=== PATIENT | female | born 1980 | race Caucasian/White ===

== ENCOUNTER 2023-11-30 11:00 | Outpatient (AMB) | payer BC, SELFPAY ==
--- NOTE | 2023-11-30 11:12 | MHC.OFFVIS ---
Intake Vital Signs 11/30/23 11:13 Height 5 ft 10 in Weight 296 lb BMI 42.5 BP 110/68 Blood Pressure Location Lt brachial Position Sitting Pulse 96 Pulse Source Pulse Oximeter Pulse Oximetry (%) 97 Oxygen Delivery Method Room Air Intake Visit Reasons: Shortness of breath Procedure Writer Required: No Type Copy Examiner: Type Copy Examiner offered & declined Accompanied by: Self / Same As Patient Allergies escitalopram Adverse Reaction (Intermediate, Verified 11/30/23 11:33) Fatigued sertraline Adverse Reaction (Intermediate, Verified 11/30/23 11:33) Chest Pain acetaminophen [From Vicodin] Adverse Reaction (Unknown, Verified 11/30/23 11:33) Nausea and Vomiting hydrocodone [From Vicodin] Adverse Reaction (Unknown, Verified 11/30/23 11:33) Nausea and Vomiting olanzapine [From Zyprexa] Adverse Reaction (Unknown, Verified 11/30/23 11:33) Dizziness Bee Stings Allergy (Severe, Uncoded 11/30/23 11:33) Anaphylaxis Medication List - Last Reconciled 11/30/23 by Criss Espino LPN albuterol sulfate 90 mcg/actuation (Ventolin HFA) 2 puffs inhalation Q4-6H PRN cyclobenzaprine 5 mg PO TID PRN duloxetine 60 mg PO DAILY epinephrine 0.3 mg IM Q4H PRN fluticasone propion-salmeterol 250-50 mcg/dose (Advair Diskus) 1 inh inhalation BID gabapentin 100 mg PO BID ondansetron 4 mg PO Q8H PRN triamcinolone acetonide 1 spray intranasal DAILY HPI Shortness of breath HPI Details Liliana is a pleasant 43 year old female, former smoker with 12 pack year history, quit 5 years ago, with underlying asthma. She reports worsening control of asthma after moving into an older home two years ago as well as kate COVID. She reports having COVID on three different occasions, last one month ago. She was admitted to [facility] in October for acute respiratory failure with hypoxia secondary to COVID. She denies intubation. She was discharged on room air. She also reports receiving three rounds of steroids since mid September. She continues to have dyspnea, productive cough with white sputum, wheezing and chest tightness. Previously she was on Advair 500 but had discontinued as her asthma was controlled. She was recently restarted on Advair 250 with suboptimal control, using her albuterol multiple times per day. She reports significant environmental allergies and is under the care of Dr. Packer. She has undergone multiple allergy tests, reports not available today. She is not taking any antihistamines as she is hesistent to take any medication. She also has two cats at home. She denies any occupational exposures. She reports son with asthma and father, smoker, with COPD. [facility] Social History (Updated 11/30/23 @ 11:24 by Criss Espino LPN) Patient Tobacco Use Status: Former Tobacco user Tobacco use type: Cigarette Cigarette Packs Per Day: 0.5 Years Smoked: 25 Review of Systems Const Denies chills, Denies excessive sweating, Denies fever(s), Denies headache(s) and Denies night sweats Eyes Denies dry eyes, Denies irritation and Denies itchy eyes ENT Reports Normal hearing present, Denies headache(s), Denies nasal congestion, Denies nasal discharge and Denies sore throat Card Denies chest pain, Denies chest pain at rest, Denies chest pain with activity, Denies claudication, Denies leg edema, Denies dyspnea, Denies orthopnea and Denies paroxysmal nocturnal dyspnea Resp Denies chest congestion, Denies pain on inspiration, Denies pain with cough, Denies dyspnea and Denies stridor Musc Denies myalgias Neuro Reports Normal hearing present and Denies headache(s) Endo Denies excessive sweating Bridger/Lymph Denies lymphadenopathy Aller/Immun Denies itchy eyes and Denies seasonal rhinorrhea Physical Exam Vital Signs: Last Vital Signs Pulse 96 11/30/23 11:13 BP 110/68 11/30/23 11:13 Pulse Ox 97 11/30/23 11:13 Oxygen Delivery Method Room Air 11/30/23 11:13 BMI result Body Mass Index 42.5 Const General: cooperative, healthy appearing, comfortable, no acute distress, well developed and alert Nutritional Appearance: obese Orientation/consciousness: patient oriented x3 Limitations: no limitations HEENT Head: Yes normal to inspection, Yes normocephalic and Yes atraumatic Ears: hearing grossly normal bilaterally and external ears normal Eyes General: appearance normal, both eyes and all related structures Eyelids: Yes eyelids normal Sclerae: sclerae normal EOM: EOMs intact bilaterally Neck Neck: Yes normal visual inspection and Yes no lymphadenopathy Lymphatic: no lymphadenopathy noted Chest Chest palpation & inspection: normal inspection of the chest Resp Effort & Inspection: normal respiratory effort, able to speak in complete sentences, no audible wheezes, no cough, no stridor, not tachypneic, no tripod positioning and no use of accessory muscles Auscultation: clear to auscultation bilaterally Cardio Jugular venous distension: no JVD Rate: regular rate Rhythm: regular rhythm Skin Other: warm, dry General skin exam: no rashes or lesions noted Neuro General: patient oriented x3 Cranial nerves: Yes Normal hearing present Cognition (Neuro): normal cognition Gait exam (Neuro): Normal gait present Extrem General: Yes normal to inspection, Yes capillary refill normal, Yes no clubbing, cyanosis or edema and Yes no pedal edema Psych Appearance: grossly normal and well kempt Speech and movement: Normal speech and movement present and Clear speech present Affect: normal affect Attitude: cooperative Thought process: Normal thought process present Thought content: Normal thought content present Insight: Good insight present (Psych) Judgement: Good judgement present (Psych) Assessment & Plan Assessment & Plan (1) Asthma: Code(s): J45.909 - Unspecified asthma, uncomplicated (2) Environmental allergies: Code(s): Z91.09 - Other allergy status, other than to drugs and biological substances (3) Former smoker: Code(s): Z87.891 - Personal history of nicotine dependence Plan Liliana's symptoms are likely related to underlying asthma with an allergic component. Will send for PFT to assess. Will also send in Wixela 500, as Advair is being discontinued. Patient reported post nasal drip contributing to cough, will trial ipratropium. Will request allergy records as well as recent CXR and chest CT from admission at [facility]. All questions were answered and patient is in agreement of plan. Will follow up to review response to Wixela and results. Orders: Orders PFT pulmonary function test Today J45.909 - Unspecified asthma, uncomplicated Medications: New ipratropium bromide administer into each nostril 2 sprays intranasal BID 30 mL 3RF fluticasone propion-salmeterol 500-50 mcg/dose (Wixela Inhub) 1 inh inhalation Q12H 60 ea 3RF Coding Level of Care Code New Pt Level 4 (61543) Diagnoses Asthma J45.909 Environmental allergies Z91.09 Former smoker Z87.897
[2023-11-30 11:13] VITALS: BP 110/68; PULSE 96; O2SAT 97; BMI 42.5
== END 2023-11-30 12:01 | disposition home or self-care (01) ==
PROVIDERS: PCP Internal Medicine; Visit Provider Nurse Practitioner Family
DX: J45.909 Unspecified asthma, uncomplicated (principal); Z91.09 Other allergy status, other than to drugs and biological substances; Z87.891 Personal history of nicotine dependence
CPT/HCPCS: 99204

== ENCOUNTER → 2023-11-30 11:00 | Outpatient (BNVA) | payer BC, SELFPAY | PROVIDERS: PCP Internal Medicine; Visit Provider Nurse Practitioner Family ==

== ENCOUNTER 2023-12-02 15:25 | Outpatient (REF) | payer BC, SELFPAY | END 2023-12-02 15:26 | disposition home or self-care (01) | LOC: CF 15:25 | PROVIDERS: Visit Provider Nurse Practitioner Family | DX: Z13.89 Encounter for screening for other disorder (principal) ==

== ENCOUNTER 2024-01-04 08:54 | Outpatient (AMB) | payer BC, SELFPAY ==
[2024-01-04 08:58] VITALS: BP 128/72; PULSE 93; O2SAT 97; BMI 42.0
--- NOTE | 2024-01-04 08:58 | MHC.OFFVIS ---
Intake Vital Signs 01/04/24 08:58 Height 5 ft 10 in Weight 293 lb BMI 42.0 BP 128/72 Blood Pressure Location Rt brachial Position Sitting Pulse 93 Pulse Source Pulse Oximeter Pulse Oximetry (%) 97 Oxygen Delivery Method Room Air Intake Visit Reasons: sick visit Recording Studio Setup Worker Required: No Elementary Secretary: Elementary Secretary offered & declined Accompanied by: Self / Same As Patient Allergies escitalopram Adverse Reaction (Intermediate, Verified 01/04/24 09:02) Fatigued sertraline Adverse Reaction (Intermediate, Verified 01/04/24 09:02) Chest Pain acetaminophen [From Vicodin] Adverse Reaction (Unknown, Verified 01/04/24 09:02) Nausea and Vomiting hydrocodone [From Vicodin] Adverse Reaction (Unknown, Verified 01/04/24 09:02) Nausea and Vomiting olanzapine [From Zyprexa] Adverse Reaction (Unknown, Verified 01/04/24 09:02) Dizziness Bee Stings Allergy (Severe, Uncoded 01/04/24 09:02) Anaphylaxis Medication List - Last Reconciled 01/04/24 by Criss Espino LPN albuterol sulfate 90 mcg/actuation (Ventolin HFA) 2 puffs inhalation Q4-6H PRN cyclobenzaprine 5 mg PO TID PRN duloxetine 60 mg PO DAILY epinephrine 0.3 mg IM Q4H PRN fluticasone propion-salmeterol 500-50 mcg/dose (Wixela Inhub) 1 inh inhalation Q12H gabapentin 100 mg PO BID ipratropium bromide 2 sprays intranasal BID ondansetron 4 mg PO Q8H PRN HPI sick visit HPI Details Liliana is a pleasant 43 year old female, former smoker with 12 pack year history, quit 5 years ago, with underlying asthma. She reports worsening control of asthma post COVID. She reports having COVID on three different occasions. She was admitted to [place] in October for acute respiratory failure with hypoxia secondary to COVID. She denies intubation. At the last visit, she was started on Wixela 500 mcg as well as trial of ipratropium. She reports significant improvement in post nasal drip with ipratropium however continues with dyspnea and wheezing. She also reports an increase productive cough with tenacious yellow sputum. She reports she has had waxing and waning symptoms for a year which respond initially to antibiotics and then symptoms return. She has been on azithromycin as well as augmentin in the past. She denies prior sputum culture. [facility] Social History (Updated 01/04/24 @ 09:04 by Criss Espino LPN) Patient Tobacco Use Status: Former Tobacco user Tobacco use type: Cigarette Cigarette Packs Per Day: 0.5 Years Smoked: 25 Smoked in Last 30 Days: No Review of Systems Const Denies chills, Denies excessive sweating, Denies fever(s), Denies headache(s) and Denies night sweats Eyes Denies dry eyes, Denies irritation and Denies itchy eyes ENT Reports Normal hearing present, Denies headache(s), Denies nasal congestion, Denies nasal discharge, Denies post nasal drip and Denies sore throat Card Denies chest pain, Denies chest pain at rest, Denies chest pain with activity, Denies claudication, Denies leg edema, Reports dyspnea, Reports dyspnea on exertion, Denies orthopnea and Denies paroxysmal nocturnal dyspnea Resp Reports change in phlegm color, Denies chest congestion, Reports cough, Reports excessive phlegm production, Denies pain on inspiration, Denies pain with cough, Reports dyspnea, Reports dyspnea on exertion, Denies stridor and Reports wheezing Musc Denies myalgias Neuro Reports Normal hearing present and Denies headache(s) Endo Denies excessive sweating Bridger/Lymph Denies lymphadenopathy Aller/Immun Denies itchy eyes, Denies seasonal rhinorrhea and Reports wheezing Physical Exam Vital Signs: Last Vital Signs Pulse 93 01/04/24 08:58 BP 128/72 01/04/24 08:58 Pulse Ox 97 01/04/24 08:58 Oxygen Delivery Method Room Air 01/04/24 08:58 BMI result Body Mass Index 42.0 Const General: cooperative, healthy appearing, comfortable, no acute distress, well developed and alert Nutritional Appearance: obese Orientation/consciousness: patient oriented x3 Limitations: no limitations HEENT Head: Yes normal to inspection, Yes normocephalic and Yes atraumatic Ears: hearing grossly normal bilaterally and external ears normal Eyes General: appearance normal, both eyes and all related structures Eyelids: Yes eyelids normal Sclerae: sclerae normal EOM: EOMs intact bilaterally Neck Neck: Yes normal visual inspection and Yes no lymphadenopathy Lymphatic: no lymphadenopathy noted Chest Chest palpation & inspection: normal inspection of the chest Resp Other: faint expiratory wheezing on exam, resolved after duoneb Effort & Inspection: normal respiratory effort, able to speak in complete sentences, no audible wheezes, Actively coughing, no stridor, not tachypneic, no tripod positioning and no use of accessory muscles Auscultation: clear to auscultation bilaterally Cardio Jugular venous distension: no JVD Rate: regular rate Rhythm: regular rhythm Skin Other: warm, dry General skin exam: no rashes or lesions noted Neuro General: patient oriented x3 Cranial nerves: Yes Normal hearing present Cognition (Neuro): normal cognition Gait exam (Neuro): Normal gait present Extrem General: Yes normal to inspection, Yes capillary refill normal, Yes no clubbing, cyanosis or edema and Yes no pedal edema Psych Appearance: grossly normal and well kempt Speech and movement: Normal speech and movement present and Clear speech present Affect: normal affect Attitude: cooperative Thought process: Normal thought process present Thought content: Normal thought content present Insight: Good insight present (Psych) Judgement: Good judgement present (Psych) Office Procedures Nebulizer Treatment Nebulizer Treatment [id number]/[id number] RX initial, or Nebulizer Subsequent Treatment Office Meds ipratropium 0.5 mg-albuterol 3 mg (2.5 mg base)/3 mL nebulization soln Performing Provider: Kelly Choi NP Performing Location: [facility] Administered by: Criss Espino LPN on 01/04/24 09:28 Dose Route Admin Location Dispensed Lot Number Expiration Date ND Top And Seat Cover Fitter 3 mL inhalation 3 mL [id number] 08/23/25 98605-076-06 [employer] Assessment & Plan Assessment & Plan (1) Cough: Code(s): R05.9 - Cough, unspecified (2) Asthma: Code(s): J45.909 - Unspecified asthma, uncomplicated (3) Environmental allergies: Code(s): Z91.09 - Other allergy status, other than to drugs and biological substances (4) Former smoker: Code(s): Z87.891 - Personal history of nicotine dependence Plan Patient reports productive cough with tenacious yellow sputum for the last 2-3 weeks and multiple antibiotics over the last few months. Attempted sputum culture in office, but unable to expectorate. Given sputum cup and will attempt at home. Will follow up with results via telephone. After duoneb, lungs sounded clear, no need for prednisone at this time. Encouraged patient to use nebulizer QD for the next few days. Advised to continue using Wixela and will consider adding spiriva. All questions were answered and patient is in agreement of plan. Will follow up to review PFT results or sooner if needed. Orders: Orders Sputum Cult + Gram stain Today R05.9 - Cough, unspecified AMB Nebulizer Treatment Today J45.909 - Unspecified asthma, uncomplicated Coding Level of Care Code Est Pt Level 4 (36430) Diagnoses Cough R05.9 Asthma J45.909 Environmental allergies Z91.09 Former smoker Z87.891 CPT Codes Nebulizer Treatment - Nebulizer Treatment, initial or subsequent: [id number]/MDI RX initial, or Nebulizer Subsequent Treatment ([id number])
== END 2024-01-04 09:58 | disposition home or self-care (01) ==
PROVIDERS: PCP Internal Medicine; Visit Provider Nurse Practitioner Family
DX: R05.9 Cough, unspecified (principal); J45.909 Unspecified asthma, uncomplicated; Z91.09 Other allergy status, other than to drugs and biological substances; Z87.891 Personal history of nicotine dependence
CPT/HCPCS: 99214

== ENCOUNTER → 2024-01-04 08:54 | Outpatient (BNVA) | payer BC, SELFPAY | PROVIDERS: PCP Internal Medicine; Visit Provider Nurse Practitioner Family | DX: R05.9 Cough, unspecified (principal); J45.909 Unspecified asthma, uncomplicated; Z91.09 Other allergy status, other than to drugs and biological substances; Z87.891 Personal history of nicotine dependence | CPT/HCPCS: 94640 ==

== ENCOUNTER 2024-02-01 13:26 | Outpatient (AMB) | payer BC, SELFPAY ==
--- NOTE | 2024-02-01 13:27 | A.OFFVIS_ITS ---
Intake Vital Signs 02/01/24 13:29 Pulse 78 Pulse Source Pulse Oximeter Pulse Oximetry (%) 97 Oxygen Delivery Method Room Air Intake Visit Reasons: sick visit Banking Management Consulting Manager Required: No Orthopedic Cast Specialist: Orthopedic Cast Specialist offered & declined Accompanied by: Self / Same As Patient Allergies escitalopram Adverse Reaction (Intermediate, Verified 02/01/24 13:30) Fatigued sertraline Adverse Reaction (Intermediate, Verified 02/01/24 13:30) Chest Pain acetaminophen [From Vicodin] Adverse Reaction (Unknown, Verified 02/01/24 13:30) Nausea and Vomiting hydrocodone [From Vicodin] Adverse Reaction (Unknown, Verified 02/01/24 13:30) Nausea and Vomiting olanzapine [From Zyprexa] Adverse Reaction (Unknown, Verified 02/01/24 13:30) Dizziness Bee Stings Allergy (Severe, Uncoded 02/01/24 13:30) Anaphylaxis Medication List - Last Reconciled 02/01/24 by Criss Espino LPN albuterol sulfate 90 mcg/actuation (Ventolin HFA) 2 puffs inhalation Q4-6H PRN cyclobenzaprine 5 mg PO TID PRN duloxetine 60 mg PO DAILY epinephrine 0.3 mg IM Q4H PRN fluticasone propion-salmeterol 500-50 mcg/dose (Wixela Inhub) 1 inh inhalation Q12H gabapentin 100 mg PO BID ipratropium bromide 2 sprays intranasal BID ondansetron 4 mg PO Q8H PRN HPI sick visit HPI Details Liliana is a pleasant 43 year old female, former smoker with 12 pack year history, quit 5 years ago, with underlying asthma. She reports worsening control of asthma post COVID. She reports having COVID on three different occasions. She was admitted to [place] in October for acute respiratory failure with hypoxia secondary to COVID. She denies intubation. At the last visit, she was started on Wixela 500 mcg as well as trial of ipratropium. She reports significant improvement in post nasal drip with ipratropium however continues with dyspnea and wheezing. She also reported an increased productive cough with tenacious yellow sputum. She was given a sputum cup, for culture as she had been on multiple antibiotics recently. Unfortunately she was unable to produce a sample. She reports improvement in symptoms with DuoNeb up until 2 weeks ago. She began to develop fatigue, increased wheezing, productive cough with yellow sputum as well as sinus pressure that has been worsening over the last 2 days. She has been using her nebulizer with good effect. She denies fever or chills. She does report son with similar symptoms. [facility] Social History (Updated 02/01/24 @ 13:31 by Criss Espino LPN) Patient Tobacco Use Status: Former Tobacco user Tobacco use type: Cigarette Cigarette Packs Per Day: 0.5 Years Smoked: 25 Review of Systems Const Denies chills, Denies excessive sweating, Denies fever(s), Denies headache(s) and Denies night sweats Eyes Denies dry eyes, Denies irritation and Denies itchy eyes ENT Reports Normal hearing present, Denies headache(s), Denies nasal congestion, Denies nasal discharge, Denies post nasal drip and Denies sore throat Card Denies chest pain, Denies chest pain at rest, Denies chest pain with activity, Denies claudication, Denies leg edema, Denies orthopnea and Denies paroxysmal nocturnal dyspnea Resp Denies chest congestion, Denies excessive phlegm production, Denies pain on inspiration, Denies pain with cough and Denies stridor Musc Denies myalgias Neuro Reports Normal hearing present and Denies headache(s) Endo Denies excessive sweating Bridger/Lymph Denies lymphadenopathy Aller/Immun Denies itchy eyes and Denies seasonal rhinorrhea Physical Exam Vital Signs: Last Vital Signs Pulse 78 02/01/24 13:29 Pulse Ox 97 02/01/24 13:29 Oxygen Delivery Method Room Air 02/01/24 13:29 Const General: cooperative, healthy appearing, comfortable, no acute distress, well developed and alert Nutritional Appearance: obese Orientation/consciousness: patient oriented x3 Limitations: no limitations HEENT Head: Yes normal to inspection, Yes normocephalic and Yes atraumatic Ears: hearing grossly normal bilaterally and external ears normal Eyes General: appearance normal, both eyes and all related structures Eyelids: Yes eyelids normal Sclerae: sclerae normal EOM: EOMs intact bilaterally Neck Neck: Yes normal visual inspection and Yes no lymphadenopathy Lymphatic: no lymphadenopathy noted Chest Chest palpation & inspection: normal inspection of the chest Resp Other: Faint expiratory wheezes throughout. Effort & Inspection: normal respiratory effort, able to speak in complete sentences, no audible wheezes, no stridor, not tachypneic, no tripod positioning and no use of accessory muscles Cardio Jugular venous distension: no JVD Rate: regular rate Rhythm: regular rhythm Skin Other: warm, dry General skin exam: no rashes or lesions noted Neuro General: patient oriented x3 Cranial nerves: Yes Normal hearing present Cognition (Neuro): normal cognition Gait exam (Neuro): Normal gait present Extrem General: Yes normal to inspection, Yes capillary refill normal, Yes no clubbing, cyanosis or edema and Yes no pedal edema Psych Appearance: grossly normal and well kempt Speech and movement: Normal speech and movement present and Clear speech present Affect: normal affect Attitude: cooperative Thought process: Normal thought process present Thought content: Normal thought content present Insight: Good insight present (Psych) Judgement: Good judgement present (Psych) Assessment & Plan Assessment & Plan (1) Cough: Code(s): R05.9 - Cough, unspecified (2) Asthma: Code(s): J45.909 - Unspecified asthma, uncomplicated (3) Environmental allergies: Code(s): Z91.09 - Other allergy status, other than to drugs and biological substances (4) Former smoker: Code(s): Z87.891 - Personal history of nicotine dependence Plan Patient with worsening symptoms consistent with sinus infection as well as wheezing that developed in the last 2 days. On exam wheezing appreciated, will send in prednisone. Encourage patient to attempt sputum culture. Will send in prescription for Augmentin if symptoms worsen over the next few days. Encouraged patient to use nebulizer QD for the next few days. All questions were answered and patient is in agreement of plan. Will follow up to review PFT results or sooner if needed. Medications: New prednisone 40 mg (2 x 20 mg) PO DAILY 10 tabs 0RF amoxicillin-pot clavulanate 875-125 mg watch and wait 1 tab PO Q12H 20 tabs 0RF Coding Level of Care Code Est Pt Level 4 (19259) Diagnoses Cough R05.9 Asthma J45.909 Environmental allergies Z91.09 Former smoker Z87.891
[2024-02-01 13:29] VITALS: PULSE 78; O2SAT 97
== END 2024-02-01 13:50 | disposition home or self-care (01) ==
PROVIDERS: PCP Internal Medicine; Visit Provider Nurse Practitioner Family
DX: R05.9 Cough, unspecified (principal); J45.909 Unspecified asthma, uncomplicated; Z91.09 Other allergy status, other than to drugs and biological substances; Z87.891 Personal history of nicotine dependence
CPT/HCPCS: 99214

== ENCOUNTER → 2024-02-01 13:26 | Outpatient (BNVA) | payer BC, SELFPAY | PROVIDERS: PCP Internal Medicine; Visit Provider Nurse Practitioner Family ==

== ENCOUNTER 2024-05-12 | Outpatient (REF) | payer BC, SELFPAY ==
[2024-05-12 10:02] VITALS: PULSE 101; RESP 16; O2SAT 100
--- NOTE | 2024-05-12 11:00 | PFT_ITS ---
Indication:Asthma Spirometry [FEV1 to FVC 65%; FEV1 2.93 L; FVC 4.48 L. No significant response to bronchodilators noted. Maximum voluntary ventilation 67% predicted.] Lung Volumes [Total lung capacity 104% predicted; residual volume 139% predicted; expiratory reserve volume 54% predicted] Diffusion Capacity [DLCO urine 12% predicted] Comparisons [None] Interpretation [There is a obstructive ventilatory defect consistent with mild COPD. No significant response to bronchodilators noted there is a mild decrease in the maximum voluntary ventilation secondary to likely deconditioning and or worsening dynamic inspiratory capacity. Lung volumes with significant air trapping due to the COPD. Diffusing capacity is within normal limits.] MTDD
== END 2024-05-12 00:01 | disposition home or self-care (01) ==
LOC: HO.RESP
PROVIDERS: PCP Internal Medicine; Visit Provider Nurse Practitioner Family
DX: J45.909 Unspecified asthma, uncomplicated (principal)
CPT/HCPCS: 94010; 94640; 94727; 94729

== ENCOUNTER 2024-05-16 11:27 | Outpatient (AMB) | payer BC, SELFPAY ==
--- NOTE | 2024-05-16 11:28 | A.OFFVIS_ITS ---
Intake Visit Reasons: Asthma/PFT Follow Up Allergies escitalopram Adverse Reaction (Intermediate, Verified 02/01/24 13:30) Fatigued sertraline Adverse Reaction (Intermediate, Verified 02/01/24 13:30) Chest Pain acetaminophen [From Vicodin] Adverse Reaction (Unknown, Verified 02/01/24 13:30) Nausea and Vomiting hydrocodone [From Vicodin] Adverse Reaction (Unknown, Verified 02/01/24 13:30) Nausea and Vomiting olanzapine [From Zyprexa] Adverse Reaction (Unknown, Verified 02/01/24 13:30) Dizziness Bee Stings Allergy (Severe, Uncoded 02/01/24 13:30) Anaphylaxis HPI HPI Asthma/PFT Follow Up: Details: Liliana is a pleasant 44 year old female, former smoker with 12 pack year history, quit 5 years ago, currently vaping with underlying asthma. She was admitted to [facility] in October for acute respiratory failure with hypoxia secondary to COVID and had worsening respiratory symptoms since. Since the last visit she has been doing well on Wixela 500 mcg and Duoneb PRN. She currently denies any respiratory symptoms. She was evaluated at [facility] ED for anaphylaxis which she attributes to alcohol. She did note she was treated with steroids and had significant depression related to this. 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 Today's visit was conducted via telephone to review PFT results. [facility] Social History (Updated 02/01/24 @ 13:31 by Criss Espino LPN) Patient Tobacco Use Status: Former Tobacco user Tobacco use type: Cigarette Cigarette Packs Per Day: 0.5 Years Smoked: 25 Review of Systems Const All systems reviewed & are unremarkable except as noted in HPI and below Physical Exam Const General: cooperative and no acute distress Orientation/consciousness: patient oriented x3 Resp Effort & Inspection: normal respiratory effort, able to speak in complete sentences and no audible wheezes Neuro General: patient oriented x3 Psych Mental Status: mental status grossly normal Speech and movement: Clear speech present Attitude: cooperative Thought process: Normal thought process present Thought content: Normal thought content present Insight: Good insight present (Psych) Judgement: Good judgement present (Psych) Telehealth Telehealth Telehealth Platform: Telephone Location of provider rendering services: practice address Location of patient: address on file Patient Identification confirmed using: Name, : Yes Telehealth method: voice only Patient verbally consented to treatment: Yes Patient verbally consented to billing insurance company: Yes Patient informed of any privacy concerns related to visit: Yes Assessment & Plan Assessment & Plan (1) Asthma: Code(s): J45.909 - Unspecified asthma, uncomplicated Category: Medical (2) Environmental allergies: Code(s): Z91.09 - Other allergy status, other than to drugs and biological substances Category: Medical (3) Former smoker: Code(s): Z87.891 - Personal history of nicotine dependence Category: Social Hx Plan Reviewed PFT which revealed an obstructive ventilatory defect consistent with mild COPD. No significant response to bronchodilators noted there is a mild decrease in the maximum voluntary ventilation secondary to likely deconditioning and or worsening dynamic inspiratory capacity. Lung volumes with significant air trapping due to the COPD. Diffusing capacity is within normal limits. At this time she reports symptoms are well controlled, advised to continue current regimen. If symptoms worsen, will consider Trelegy versus adding a biologic such as Xolair. All questions were answered and patient is in agreement of plan. Will follow up to review PFT results or sooner if needed. Medications: Discontinued prednisone Discontinued Reason: Patient Completed Course 40 mg (2 x 20 mg) PO DAILY 10 tabs 0RF amoxicillin-pot clavulanate 875-125 mg watch and wait Discontinued Reason: Patient Completed Course 1 tab PO Q12H 20 tabs 0RF Scribe Plan - Not visible on output: I spent 12 minutes speaking with the patient on the phone plus an additional 10 minutes reviewing and updating records for a total of 22 minutes Coding Level of Care Code Tele Est Pt Level 4 (10940) Diagnoses Asthma J45.909 Environmental allergies Z91.09 Former smoker Z87.891
== END 2024-05-16 12:07 | disposition home or self-care (01) ==
LOC: HO.HPSW 11:27
PROVIDERS: PCP Internal Medicine; Visit Provider Nurse Practitioner Family
DX: J45.909 Unspecified asthma, uncomplicated (principal); Z91.09 Other allergy status, other than to drugs and biological substances; Z87.891 Personal history of nicotine dependence
CPT/HCPCS: 99442

== ENCOUNTER → 2024-05-16 11:27 | Outpatient (BNVA) | payer BC, SELFPAY | PROVIDERS: PCP Internal Medicine; Visit Provider Nurse Practitioner Family ==

== ENCOUNTER → 2024-08-08 12:51 | Outpatient (AMB) | payer BC, SELFPAY ==
--- NOTE | 2024-08-08 12:57 | A.OFFVIS_ITS ---
Vital Signs 08/08/24 12:58 Height 5 ft 10 in Weight 256 lb 2 oz BMI 36.7 BP 124/86 Blood Pressure Location Rt brachial Position Sitting Pulse 78 Pulse Source Pulse Oximeter Pulse Oximetry (%) 96 Oxygen Delivery Method Room Air Intake Visit Reasons: Sick visit cough, wheezing Allergies escitalopram Adverse Reaction (Intermediate, Verified 08/08/24 13:00) Fatigued sertraline Adverse Reaction (Intermediate, Verified 08/08/24 13:00) Chest Pain acetaminophen [From Vicodin] Adverse Reaction (Unknown, Verified 08/08/24 13:00) Nausea and Vomiting hydrocodone [From Vicodin] Adverse Reaction (Unknown, Verified 08/08/24 13:00) Nausea and Vomiting olanzapine [From Zyprexa] Adverse Reaction (Unknown, Verified 08/08/24 13:00) Dizziness Bee Stings Allergy (Severe, Uncoded 08/08/24 13:00) Anaphylaxis HPI HPI Sick visit cough, wheezing: Details: Liliana is a pleasant 44 year old female, former smoker with 12 pack year history, quit 5 years ago, currently vaping with underlying asthma and h/o acute respiratory failure with hypoxia secondary to COVID and had worsening respiratory symptoms since. She has been doing well on Wixela 500 mcg and albuterol MDI/neb. Today she presents for an acute visit. She reports nasal congestion, sore throat, feeling feverish, chills and fatigue that started about 8 days ago. She notes upper respiratory symptoms are improving but continues with significant wheezing. She does note that she ran out of Wixela due to financial constraints and only recently started two weeks ago. She has been using her albuterol MDI frequently, ran out of nebulizer tubing so has been without. She reports son with similar symptoms last week. [facility] Social History Patient Tobacco Use Status: Former Tobacco user Tobacco use type: Cigarette Cigarette Packs Per Day: 0.5 Years Smoked: 25 Review of Systems Const Denies chills, Denies excessive sweating, Denies fever(s), Denies headache(s) and Denies night sweats Eyes Denies dry eyes, Denies irritation and Denies itchy eyes ENT Reports Normal hearing present, Denies headache(s), Denies nasal congestion, Denies nasal discharge, Denies post nasal drip and Denies sore throat Card Denies chest pain, Denies chest pain at rest, Denies chest pain with activity, Denies claudication, Denies leg edema, Denies orthopnea and Denies paroxysmal nocturnal dyspnea Resp Denies chest congestion, Denies excessive phlegm production, Denies pain on inspiration, Denies pain with cough and Denies stridor Musc Denies myalgias Neuro Reports Normal hearing present and Denies headache(s) Endo Denies excessive sweating Bridger/Lymph Denies lymphadenopathy Aller/Immun Denies itchy eyes and Denies seasonal rhinorrhea Physical Exam Vital Signs: Last Vital Signs Pulse 78 08/08/24 12:58 BP 124/86 08/08/24 12:58 Pulse Ox 96 08/08/24 12:58 Oxygen Delivery Method Room Air 08/08/24 12:58 BMI result Body Mass Index 36.7 Const General: cooperative, healthy appearing, comfortable, no acute distress, well developed and alert Nutritional Appearance: obese Orientation/consciousness: patient oriented x3 Limitations: no limitations HEENT Head: Yes normal to inspection, Yes normocephalic and Yes atraumatic Ears: hearing grossly normal bilaterally and external ears normal Eyes General: appearance normal, both eyes and all related structures Eyelids: Yes eyelids normal Sclerae: sclerae normal EOM: EOMs intact bilaterally Neck Neck: Yes normal visual inspection and Yes no lymphadenopathy Lymphatic: no lymphadenopathy noted Chest Chest palpation & inspection: normal inspection of the chest Resp Other: harsh cough, rhonchi throughout with faint expiratory wheezing. significantly improved with nebulizer. Effort & Inspection: normal respiratory effort, able to speak in complete sentences, no audible wheezes, Actively coughing, no stridor, not tachypneic, no tripod positioning and no use of accessory muscles Cardio Jugular venous distension: no JVD Rate: regular rate Rhythm: regular rhythm Skin Other: warm, dry General skin exam: no rashes or lesions noted Neuro General: patient oriented x3 Cranial nerves: Yes Normal hearing present Cognition (Neuro): normal cognition Gait exam (Neuro): Normal gait present Extrem General: Yes normal to inspection, Yes capillary refill normal, Yes no clubbing, cyanosis or edema and Yes no pedal edema Psych Appearance: grossly normal and well kempt Speech and movement: Normal speech and movement present and Clear speech present Affect: normal affect Attitude: cooperative Thought process: Normal thought process present Thought content: Normal thought content present Insight: Good insight present (Psych) Judgement: Good judgement present (Psych) Office Procedures Nebulizer Treatment Nebulizer Treatment [id number] RX initial, or Nebulizer Subsequent Treatment Office Meds ipratropium 0.5 mg-albuterol 3 mg (2.5 mg base)/3 mL nebulization soln Performing Provider: Kelly Choi NP Performing Location: [facility] [place] [facility] Administered by: Criss Espino LPN on 08/08/24 13:18 Dose Route Admin Location Dispensed Lot Number Expiration Date [employer]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 Will also send nebulizer supplies. Advised to continue current regimen. Will send refills. All questions were answered and patient is in agreement of plan. Will follow up for regularly scheduled appointment or sooner if needed. Orders: Orders AMB Nebulizer Treatment Today J45.909 - Unspecified asthma, uncomplicated Medications: New albuterol sulfate 90 mcg/actuation (Ventolin HFA) 2 puffs inhalation Q4-6H PRN 1 ea 3RF shortness of breath or wheezing azithromycin For 250 mg dose pack: take 500 mg today (day 1), then 250 mg for 4 days (days 2-5) PO 6 tabs 0RF ipratropium-albuterol 0.5 mg-3 mg(2.5 mg base)/3 mL 3 mL inhalation Q6H PRN 90 mL 0RF wheezing Refilled fluticasone propion-salmeterol 500-50 mcg/dose (Wixela Inhub) 1 inh inhalation Q12H 60 ea 3RF Coding Level of Care Code Est Pt Level 4 (49595) Diagnoses Asthma J45.909 Environmental allergies Z91.09 Former smoker Z87.891 CPT Codes Nebulizer Treatment - Nebulizer Treatment, initial or subsequent: 62717- Nebulizer/MDI RX initial, or Nebulizer Subsequent Treatment ([id number])
[2024-08-08 12:58] VITALS: BP 124/86; PULSE 78; O2SAT 96; BMI 36.7
== END ==
PROVIDERS: PCP Internal Medicine; Visit Provider Nurse Practitioner Family
DX: J45.909 Unspecified asthma, uncomplicated (principal); Z91.09 Other allergy status, other than to drugs and biological substances; Z87.891 Personal history of nicotine dependence
CPT/HCPCS: 99214

== ENCOUNTER → 2024-08-08 12:51 | Outpatient (BNVA) | payer BC, SELFPAY | PROVIDERS: PCP Internal Medicine; Visit Provider Nurse Practitioner Family | DX: J45.909 Unspecified asthma, uncomplicated (principal); Z91.09 Other allergy status, other than to drugs and biological substances; Z87.891 Personal history of nicotine dependence | CPT/HCPCS: 94640 ==

== ENCOUNTER 2024-11-14 09:51 | Outpatient (AMB) | payer BC, SELFPAY ==
[2024-11-14 09:55] VITALS: BP 126/78; PULSE 88; O2SAT 99; BMI 36.6
--- NOTE | 2024-11-14 09:55 | A.OFFVIS_ITS ---
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 Laboratory Phlebotomist: Laboratory Phlebotomist offered & declined Accompanied by: Self / Same As Patient Allergies escitalopram Adverse Reaction (Intermediate, Verified 11/14/24 09:59) Fatigued sertraline Adverse Reaction (Intermediate, Verified 11/14/24 09:59) Chest Pain acetaminophen [From Vicodin] Adverse Reaction (Unknown, Verified 11/14/24 09:59) Nausea and Vomiting hydrocodone [From Vicodin] Adverse Reaction (Unknown, Verified 11/14/24 09:59) Nausea and Vomiting olanzapine [From Zyprexa] Adverse Reaction (Unknown, Verified 11/14/24 09:59) Dizziness aripiprazole [From Abilify] Adverse Reaction (Verified 11/14/24 10:01) axphagia Bee Stings Allergy (Severe, Uncoded 11/14/24 09:59) Anaphylaxis Medication List - Last Reconciled 11/14/24 by Criss Espino LPN albuterol sulfate 90 mcg/actuation (Ventolin HFA) 2 puffs inhalation Q4-6H PRN cyclobenzaprine 5 mg PO TID PRN duloxetine 60 mg PO DAILY epinephrine 0.3 mg IM Q4H PRN fluticasone propion-salmeterol 500-50 mcg/dose (Wixela Inhub) 1 inh inhalation Q12H gabapentin 100 mg PO BID ipratropium bromide 2 sprays intranasal BID ipratropium-albuterol 0.5 mg-3 mg(2.5 mg base)/3 mL 3 mL inhalation Q6H PRN ondansetron 4 mg PO Q8H PRN HPI HPI asthma: Details: Liliana is a pleasant 44 year old female, former smoker with 12 pack year history, quit 5 years ago, currently vaping with underlying asthma and h/o acute respiratory failure with hypoxia secondary to COVID-19 and had worsening respiratory symptoms since. She has been doing well on Wixela 500 mcg and albuterol MDI/neb. Since the last visit, she contracted COVID-19 10/29 with sinus congestion, productive cough, worsening dyspnea and wheezing. She was given prednisone by PCP however productive cough continued. She was prescribed azithromycin for likely secondary infection and reports significant improvement in sinus congestion. She continues to report intermittent wheezing however has not used albuterol MDI/neb. [facility] Social History Patient Tobacco Use Status: Former Tobacco user Tobacco use type: Cigarette Cigarette Packs Per Day: 0.5 Years Smoked: 25 Review of Systems Const Denies chills, Denies excessive sweating, Denies fever(s), Denies headache(s) and Denies night sweats Eyes Denies dry eyes, Denies irritation and Denies itchy eyes ENT Reports Normal hearing present, Denies headache(s), Denies nasal congestion, Denies post nasal drip and Denies sore throat Card Denies chest pain, Denies chest pain at rest, Denies chest pain with activity, Denies claudication, Denies leg edema, Denies dyspnea, Denies dyspnea on exertion, Denies orthopnea and Denies paroxysmal nocturnal dyspnea Resp Denies chest congestion, Denies excessive phlegm production, Denies pain on inspiration, Denies pain with cough, Denies dyspnea, Denies dyspnea on exertion, Denies stridor and Denies wheezing Musc Denies myalgias Neuro Reports Normal hearing present and Denies headache(s) Endo Denies excessive sweating Bridger/Lymph Denies lymphadenopathy Aller/Immun Denies itchy eyes, Denies seasonal rhinorrhea and Denies wheezing Physical Exam Vital Signs: Last Vital Signs Pulse 88 11/14/24 09:55 BP 126/78 11/14/24 09:55 Pulse Ox 99 11/14/24 09:55 Oxygen Delivery Method Room Air 11/14/24 09:55 BMI result Body Mass Index 36.6 Const General: cooperative, healthy appearing, comfortable, no acute distress, well developed and alert Nutritional Appearance: obese Orientation/consciousness: patient oriented x3 Limitations: no limitations HEENT Head: Yes normal to inspection, Yes normocephalic and Yes atraumatic Ears: hearing grossly normal bilaterally and external ears normal Eyes General: appearance normal, both eyes and all related structures Eyelids: Yes eyelids normal Sclerae: sclerae normal EOM: EOMs intact bilaterally Neck Neck: Yes normal visual inspection and Yes no lymphadenopathy Lymphatic: no lymphadenopathy noted Chest Chest palpation & inspection: normal inspection of the chest Resp Effort & Inspection: normal respiratory effort, able to speak in complete sentences, no audible wheezes, no cough, no stridor, not tachypneic, no tripod positioning and no use of accessory muscles Auscultation: clear to auscultation bilaterally Cardio Jugular venous distension: no JVD Rate: regular rate Rhythm: regular rhythm Skin Other: warm, dry General skin exam: no rashes or lesions noted Neuro General: patient oriented x3 Cranial nerves: Yes Normal hearing present Cognition (Neuro): normal cognition Gait exam (Neuro): Normal gait present Extrem General: Yes normal to inspection, Yes capillary refill normal, Yes no clubbing, cyanosis or edema and Yes no pedal edema Psych Appearance: grossly normal and well kempt Speech and movement: Normal speech and movement present and Clear speech present Affect: normal affect Attitude: cooperative Thought process: Normal thought process present Thought content: Normal thought content present Insight: Good insight present (Psych) Judgement: Good judgement present (Psych) Assessment & Plan Assessment & Plan (1) Asthma: Code(s): J45.909 - Unspecified asthma, uncomplicated Category: Medical (2) Environmental allergies: Code(s): Z91.09 - Other allergy status, other than to drugs and biological substances Category: Medical (3) Former smoker: Code(s): Z87.891 - Personal history of nicotine dependence Category: Social Hx Plan At this time, January reports improving respiratory symptoms since COVID infection. Encouraged use of nebulizer and call office if symptoms worsen. Continue Wixela and albuterol MDI PRN. All questions were answered and patient is in agreement of plan. Will follow up in 3-6 months or sooner if needed. Medications: Refilled albuterol sulfate 90 mcg/actuation (Ventolin HFA) 2 puffs inhalation Q4-6H PRN 1 ea 3RF shortness of breath or wheezing fluticasone propion-salmeterol 500-50 mcg/dose (Wixela Inhub) 1 inh inhalation Q12H 60 ea 3RF ipratropium bromide administer into each nostril 2 sprays intranasal BID 30 mL 3RF Coding Level of Care Code Est Pt Level 3 (16826) Diagnoses Asthma J45.909 Environmental allergies Z91.09 Former smoker Z87.891
--- OUTSIDE RECORDS SUMMARY | 2024-11-14 10:44 | XMS_ITS | Clinical Summary ---
Author Organization [facility] Address [address] [place] [address] Care Team Providers Care Site Promotion Agent Name Role Phone Salima Finney MD Primary Care Provider Surgical History Surgery Date Site/Laterality Comments LAPAROSCOPIC GASTRIC BANDING 11/18/09 PROCEDURE: LAP ADJUSTABLE GASTRIC BAND Medical History Medical History Date Comments Asthma DX:Asthma Depression DX:Depression Hiatal hernia 04/15/2015 DX:Hiatal hernia Family History Medical History Relation Name Comments Lung cancer Aunt 1 paternal Other: Peptic ulcer Father colostom y Diabetes Mother Lung cancer Paternal Grandmother Breast cancer Sister 1 diagnosed age 33 yr Relation Name Status Comments Aunt 1 Aunt 2 Father Alive Mother Alive Paternal Grandmother Sister 1 Sister 2 Alive Social History Tobacco Use Types Packs/Day Years Used Date Smoking Tobacco: Every Day Cigarettes Alcohol Use Standard Drinks/Week Comments Yes 0 (1 standard drink = 0.6 oz pur e alcohol) Sex and Gender Information Value Date Recorded Sex Assigned at Not on file Gender Identity Not on file Sexual Orientation Not on file Obstetrics History Plan of Treatment Health Maintenance Due Date Last Done Comments Breast Cancer Screening 1980 Pneumococcal Vaccine: Pediat rics (0 to 5 Years) and At-Risk Patients (6 to 64 Years) (1 of 2 - PCV) 1986 DTaP,Tdap,and Td Vaccines (1 - Tdap) 1999 Hepatitis B Vaccines (1 of 3 - 19+ 3-dose series) 1999 Cervical Cancer Screening: P ap Smear 2001 Depression Screening 09/26/2022 HIV Screening 09/26/2022 Hepatitis C Screening 09/26/2022 Social Influencers of Health Screening 09/26/2022 COVID-19 Vaccine ( - 2023-2 5 season) 2024 Influenza Vaccine (#1) 2024 HIB Vaccines Aged Out No longer eligi ble based on patient's age to complete this topic HPV Vaccines Aged Out No longer eligi ble based on patient's age to complete this topic Hepatitis A Vaccines Aged Out No long er eligible based on patient's age to complete this topic IPV Vaccines Aged Out No longer eligi ble based on patient's age to complete this topic MMR Vaccines Aged Out No longer eligi ble based on patient's age to complete this topic Meningococcal ACWY Vaccine Aged Out N o longer eligible based on patient's age to complete this topic RSV Immunization Patients Un alecia 20 months Aged Out No longer eligible b ased on patient's age to complete this topic Varicella Vaccines Aged Out No longer eligible based on patient's age to complete this topic Care Teams Site Promotion Agent Relationship Specialty Start Date End Date Salima Finney MD 11 Rebecca Leggett MA PCP - General Internal Medicine 04/24/15
--- OUTSIDE RECORDS SUMMARY | 2024-11-14 10:44 | XMS_ITS | Continuity of Care Document ---
Author Organization [facility] Address [address] [place] [address] D[address] [place] [address]- Care Team Providers Care Box Lining Machine Operator Name Role Phone Lou Hill MD Primary Care Physician [place] [facility] [place] - 10/26/[address] [place] [address]- Attending Physician: Xochitl Hamilton MD Referring Physician: Lou Hill MD Encounter Type: Pre Office Visit Allergies, Adverse Reactions, Alerts Substance Criticality Severity Reaction Reaction Severity Status sertraline Chest pain Active Vicodin Unable to assess criticality Persistent Severe severe N/V Active Bee Stings Unable to assess criticality Persistent Severe anaphylaxis Active Milk Products Resolv ed Wheat Resolved Abilify Unable to assess criticality Persistent Moderate Akathisia Active escitalopram High criticality Moderate Severe Fati henri Cold Sweats Chills Active Egg Allergy Resolved ZyPREXA Unable to assess criticality Persistent Severe severe mood swings Active Coconut Resolved Immunizations Given and Recorded Vaccine Date Status Refusal Reason influenza virus vaccine, inactivated 06/15/23 Dayday rded influenza virus vaccine, inactivated 08/18/22 Dayday rded influenza virus vaccine, inactivated 07/29/21 Give n SARS-CoV-2 (COVID-19) mRNA-1273 vaccine 06/24/21 R ecorded SARS-CoV-2 (COVID-19) mRNA-1273 vaccine 05/27/21 R ecorded tetanus/diphtheria/pertussis, acel(Tdap) 08/22/20 Recorded Influenza Virus Vaccine (oldterm) 08/13/20 Recorde d Problem List Condition Confirmation Course Effective Dates Status Health Status Informant Pain in the abdomen Confirmed Active Asthma flare Confirmed Active Encounter for completion of form with patient Confirmed Active Allergic rhinitis Confirmed Active Food allergy Confirmed Active Anaphylactic reaction Confirmed Active Anxiety disorder Confirmed Active Asthma Confirmed Active COPD with asthma Confirmed Active Heel spur Confirmed Active Oral thrush Confirmed Active Cannabis use disorder Confirmed Active Posttraumatic stress disorder Confirmed Active Cough Confirmed Active Vaccine counseling Confirmed Active Diverticulosis Confirmed Active Dizziness Confirmed Active Dyspnea Confirmed Active Epigastric pain Confirmed Active Asthma exacerbation Confirmed Active Mold exposure Confirmed Active Family history of breast cancer in sister Confirmed Active Family history of von Willebrand disease Confirmed Active Fatigue Confirmed Active Former tobacco use Confirmed Active Reflux esophagitis Confirmed Active Social phobia, generalized Confirmed Active Headache Confirmed Active Pain of right heel Confirmed Active Hematochezia Confirmed Active Hemoptysis Confirmed Active Hemorrhoids Confirmed Active Hx gestational diabetes Confirmed Active History of vaginal infection Confirmed Active History of COVID-19 Confirmed Active Hypercholesterolemia Confirmed Active Hypoxia Confirmed Active Elevated IgE level Confirmed Active Dyspepsia Confirmed Active Menorrhagia Confirmed Active Migraines Confirmed Active Morbid obesity Confirmed Active Nausea & vomiting Confirmed Active Knee pain, left Confirmed Active Panic attacks Confirmed Active Healthcare maintenance Confirmed Active Encounter for screening involving social determinants of health (SDoH) Confirmed Active COVID-19 long hauler manifesting chronic cough Confirmed Active Prediabetes Confirmed Active Major depressive disorder, recurrent episode with anxious distress Confirmed Active Severe obesity (BMI 35.0-39.9) with comorbidity Confirmed Active Sore throat Confirmed Active Cervical strain Confirmed Active Hives Confirmed Active Viral URI with cough Confirmed Active Vitamin D deficiency Confirmed Active Social History Social History Type Response Smoking Status Former smoker, quit more than 30 days ago; Other: quit in 2019, half a pack to a pack a day; Started at age: 14; entered on: 11/24/22 Sex Sex Representation Female (finding) Patient Care team information Care Team Personnel Name: Lou Hill MD Position: [facility] Physician - Primary Care Member Role: PCP Address: [address] [place] [address], [address] [place], [place] [address] Telecom: Name: Emy Fernández [place] Position: [facility] Office Staff Member Role: Primary Care Nurse Name: Jorge Oliveira MD Position: [facility] MATERIAL SPREADER MD Member Role: Lifetime MATERIAL SPREADER Physician Address: [address] [place], [place] [id number] Telecom: Care Team Related Persons Name: KATTY ROMERO Name: FRANC ROMERO Name: RICH HARDY Name: DEMETRICE HARDY Name: DEMETRICE HARDY Insurance Providers Guarantor name: RADHA HAYLEY Health Plan Information #: 1 Payer: HMO BLUE [employer] NETWORK Member Number: [id number] Policy Number: NA Group Number: [id number] Health Plan Information #: 2 Payer: HMO BLUE IN NETWORK Member Number: [id number] Policy Number: NA Group Number: [id number]
--- OUTSIDE RECORDS SUMMARY | 2024-11-14 10:44 | XMS_ITS | Continuity of Care Document ---
Author Organization [facility] Address [address] [place] [address] [address] [place] [address]- Care Team Providers Care Can Filling Machine Operator Name Role Phone Sergio KING, Lou Kay Primary Care Physician [place] [facility] [place] 09/26/24 - 10/26/[address] [place] [address]- Attending Physician: Raudel Medina Admitting Physician: Raudel Medina Referring Physician: Raudel Medina Encounter Type: Triage Allergies, Adverse Reactions, Alerts Substance Criticality Severity Reaction Reaction Severity Status Milk Products Resolv ed Wheat Resolved Abilify Unable to assess criticality Persistent Moderate Akathisia Active escitalopram High criticality Moderate Severe Fati henri Cold Sweats Chills Active sertraline Chest pain Active Vicodin Unable to assess criticality Persistent Severe severe N/V Active Bee Stings Unable to assess criticality Persistent Severe anaphylaxis Active Egg Allergy Resolved ZyPREXA Unable to [...] Team Personnel Name: Lou Hill MD Position: [facility] Physician - Primary Care Member Role: PCP Address: [address] [place] [address], [address] [place], [place] [address] Telecom: Name: Emy Fernández [place] Position: [facility] Office Staff Member Role: Primary Care Nurse Name: Jorge Oliveira MD Position: [facility] REAL ESTATE REPRESENTATIVE MD Member Role: Lifetime REAL ESTATE REPRESENTATIVE Physician Address: [address] [place], [place] [id number] Telecom: Care Team Related Persons Name: KATTY ROMERO Name: FRANC ROMERO Name: RICH HARDY Name: DEMETRICE HARDY Name: DEMETRICE HARDY Insurance Providers Guarantor name: JANUARY [facility] Plan Information #: 1 Payer: HMO BLUE IN NETWORK Member Number: NA Policy Number: NA Group Number: NA
== END 2024-11-14 10:17 | disposition home or self-care (01) ==
PROVIDERS: PCP Internal Medicine; Visit Provider Nurse Practitioner Family
DX: J45.909 Unspecified asthma, uncomplicated (principal); Z91.09 Other allergy status, other than to drugs and biological substances; Z87.891 Personal history of nicotine dependence
CPT/HCPCS: 99213

== ENCOUNTER 2025-02-13 08:58 | Outpatient (AMB) | payer BC, SELFPAY ==
--- NOTE | 2025-02-13 08:14 | A.OFFVIS_ITS ---
Vital Signs 02/13/25 09:00 Height 5 ft 10 in Weight 250 lb BMI 35.9 BP 130/68 Blood Pressure Location Rt brachial Pulse 88 Pulse Source Pulse Oximeter Pulse Oximetry (%) 99 Oxygen Delivery Method Room Air Intake Visit Reasons: asthma Boxcar Weigher Required: No Vessel Operator: Vessel Operator offered & declined Accompanied by: Self / Same As Patient Allergies escitalopram Adverse Reaction (Intermediate, Verified 02/13/25 09:05) Fatigued sertraline Adverse Reaction (Intermediate, Verified 02/13/25 09:05) Chest Pain acetaminophen [From Vicodin] Adverse Reaction (Unknown, Verified 02/13/25 09:05) Nausea and Vomiting hydrocodone [From Vicodin] Adverse Reaction (Unknown, Verified 02/13/25 09:05) Nausea and Vomiting olanzapine [From Zyprexa] Adverse Reaction (Unknown, Verified 02/13/25 09:05) Dizziness aripiprazole [From Abilify] Adverse Reaction (Verified 02/13/25 09:05) axphagia Bee Stings Allergy (Severe, Uncoded 02/13/25 09:05) Anaphylaxis Medication List - Last Reconciled 02/13/25 by Criss Espino LPN albuterol sulfate 90 mcg/actuation (Ventolin HFA) 2 puffs inhalation Q4-6H PRN cyclobenzaprine 5 mg PO TID PRN duloxetine 60 mg PO DAILY epinephrine 0.3 mg IM Q4H PRN fluticasone propion-salmeterol 500-50 mcg/dose (Wixela Inhub) 1 inh inhalation Q12H gabapentin 100 mg PO BID ipratropium bromide 2 sprays intranasal BID ipratropium-albuterol 0.5 mg-3 mg(2.5 mg base)/3 mL 3 mL inhalation Q6H PRN ondansetron 4 mg PO Q8H PRN HPI HPI asthma: Details: Liliana is a pleasant 44 year old female, former smoker with 12 pack year history, quit 5 years ago, intermittently smoking marijuana wih underlying asthma and h/o acute respiratory failure with hypoxia secondary to COVID-19. She reports suboptimal control using Wixela 500 mcg and albuterol MDI/neb. She has noticed increased dyspnea since engaging in regular exercise. She also notes increased chest tightness and wheezing over the last few days after increased marijuana use. She continues to report intermittent wheezing however has not used albuterol MDI/neb. REPLACED BY [facility] Social History Patient Tobacco Use Status: Former Tobacco user Tobacco use type: Cigarette Cigarette Packs Per Day: 0.5 Years Smoked: 25 Review of Systems Const Denies chills, Denies excessive sweating, Denies fever(s), Denies headache(s) and Denies night sweats Eyes Denies dry eyes, Denies irritation and Denies itchy eyes ENT Reports Normal hearing present, Denies headache(s), Denies nasal congestion, Denies post nasal drip and Denies sore throat Card Denies chest pain, Denies chest pain at rest, Denies chest pain with activity, Denies claudication, Denies leg edema, Denies dyspnea, Reports dyspnea on exertion, Denies orthopnea and Denies paroxysmal nocturnal dyspnea Resp Denies chest congestion, Denies excessive phlegm production, Denies pain on inspiration, Denies pain with cough, Denies dyspnea, Reports dyspnea on exertion, Denies stridor and Reports wheezing Musc Denies myalgias Neuro Reports Normal hearing present and Denies headache(s) Endo Denies excessive sweating Bridger/Lymph Denies lymphadenopathy Aller/Immun Denies itchy eyes, Denies seasonal rhinorrhea and Reports wheezing Physical Exam Vital Signs: Last Vital Signs Pulse 88 02/13/25 09:00 BP 130/68 02/13/25 09:00 Pulse Ox 99 02/13/25 09:00 Oxygen Delivery Method Room Air 02/13/25 09:00 BMI result Body Mass Index 35.9 Const General: cooperative, healthy appearing, comfortable, no acute distress, well developed and alert Nutritional Appearance: obese Orientation/consciousness: patient oriented x3 Limitations: no limitations HEENT Head: Yes normal to inspection, Yes normocephalic and Yes atraumatic Ears: hearing grossly normal bilaterally and external ears normal Eyes General: appearance normal, both eyes and all related structures Eyelids: Yes eyelids normal Sclerae: sclerae normal EOM: EOMs intact bilaterally Neck Neck: Yes normal visual inspection and Yes no lymphadenopathy Lymphatic: no lymphadenopathy noted Chest Chest palpation & inspection: normal inspection of the chest Resp Effort & Inspection: normal respiratory effort, able to speak in complete sentences, no audible wheezes, no cough, no stridor, not tachypneic, no tripod positioning and no use of accessory muscles Auscultation: clear to auscultation bilaterally Cardio Jugular venous distension: no JVD Rate: regular rate Rhythm: regular rhythm Skin Other: warm, dry General skin exam: no rashes or lesions noted Neuro General: patient oriented x3 Cranial nerves: Yes Normal hearing present Cognition (Neuro): normal cognition Gait exam (Neuro): Normal gait present Extrem General: Yes normal to inspection, Yes capillary refill normal, Yes no clubbing, cyanosis or edema and Yes no pedal edema Psych Appearance: grossly normal and well kempt Speech and movement: Normal speech and movement present and Clear speech present Affect: normal affect Attitude: cooperative Thought process: Normal thought process present Thought content: Normal thought content present Insight: Good insight present (Psych) Judgement: Good judgement present (Psych) Assessment & Plan Assessment & Plan (1) Asthma: Code(s): J45.909 - Unspecified asthma, uncomplicated Category: Medical (2) Environmental allergies: Code(s): Z91.09 - Other allergy status, other than to drugs and biological substances Category: Medical (3) Former smoker: Code(s): Z87.891 - Personal history of nicotine dependence Category: Social Hx Plan January reports suboptimal control with Wixela, will switch to Trelegy. At this time, no wheezing appreciated, if symptoms worsen will consider prednisone. Encouraged use of nebulized therapies and cessation of smoking. Discussed revisiting park interpretive specialist as she notes symptoms have been more triggered. All questions were answered and patient is in agreement of plan. Will follow up in 6-8 weeks or sooner if needed. Medications: New tsxfedapxru-vjylcarjv-pqqlfrox 200-62.5-25 mcg (Trelegy Ellipta) 1 inh inhalation DAILY 60 ea 3RF Discontinued fluticasone propion-salmeterol 500-50 mcg/dose (Wixela Inhub) Discontinued Reason: Patient Completed Course 1 inh inhalation Q12H 60 ea 0RF Coding Level of Care Code Est Pt Level 4 (47923) Diagnoses Asthma J45.909 Environmental allergies Z91.09 Former smoker Z87.891
[2025-02-13 09:00] VITALS: BP 130/68; PULSE 88; O2SAT 99; BMI 35.9
--- OUTSIDE RECORDS SUMMARY | 2025-02-13 09:41 | XMS_ITS | Clinical Summary ---
Author Organization [facility] Address [address] [place] [address] Care Team Providers Care Overnight Associate Name Role Phone Salima Finney MD Primary Care Provider [phone] Surgical History Surgery Date Site/Laterality Comments LAPAROSCOPIC [...] drink = 0.6 oz pur e alcohol) Comments Unknown Sex and Gender Information Value Date Recorded Sex Assigned at Not on file Legal Sex Female 12:55 AM EST Gender Identity Not on file Sexual Orientation Not on file Obstetrics History Plan of Treatment Health Maintenance Due Date Last Done Comments Breast Cancer Screening 1980 DTaP,Tdap,and Td Vaccines (1 - Tdap) 1999 Hepatitis B Vaccines (1 of 3 - 19+ 3-dose series) 1999 Cervical Cancer Screening: P ap Smear 2001 HIV Screening 09/26/2022 COVID-19 Vaccine ( - 2023-2 5 season) 2024 Influenza Vaccine (Season Ended) 2025 HIB Vaccines Aged Out No longer eligi [...] patient's age to complete this topic Meningococcal B Vaccine Aged Out No l onger eligible based on patient's age to complete this topic Pneumococcal Vaccine: Pediat rics (0 to 5 Years) and At-Risk Patients (6 to 64 Years) Aged Out No longer eligible b ased on patient's age to complete this topic RSV Immunization Patients Un alecia 20 months Aged Out No longer eligible b ased on patient's age to complete this topic Varicella Vaccines Aged Out No longer eligible based on patient's age to complete this topic Care Teams Overnight Associate Relationship Specialty Start Date End Date Salima Finney MD [address] [place] PCP - General Internal Medicine 04/24/15
== END 2025-02-13 09:22 | disposition home or self-care (01) ==
LOC: HO.HPSW 08:59
PROVIDERS: PCP Internal Medicine; Visit Provider Nurse Practitioner Family
DX: J45.909 Unspecified asthma, uncomplicated (principal); Z91.09 Other allergy status, other than to drugs and biological substances; Z87.891 Personal history of nicotine dependence
CPT/HCPCS: 99214

== ENCOUNTER → 2025-02-13 08:58 | Outpatient (BNVA) | payer BC, SELFPAY | PROVIDERS: PCP Internal Medicine; Visit Provider Nurse Practitioner Family ==

== ENCOUNTER 2025-03-13 09:06 | Outpatient (AMB) | payer BC, SELFPAY ==
[2025-03-13 09:11] VITALS: BP 108/76; PULSE 78; O2SAT 98; BMI 36.6
--- NOTE | 2025-03-13 09:11 | A.OFFVIS_ITS ---
Vital Signs 03/13/25 09:11 Height 5 ft 10 in Weight 255 lb 6 oz BMI 36.6 BP 108/76 Blood Pressure Location Lt brachial Position Sitting Pulse 78 Pulse Source Pulse Oximeter Pulse Oximetry (%) 98 Oxygen Delivery Method Room Air Intake Visit Reasons: asthma Allergies escitalopram Adverse Reaction (Intermediate, Verified 03/13/25 09:13) Fatigued sertraline Adverse Reaction (Intermediate, Verified 03/13/25 09:13) Chest Pain acetaminophen [From Vicodin] Adverse Reaction (Unknown, Verified 03/13/25 09:13) Nausea and Vomiting hydrocodone [From Vicodin] Adverse Reaction (Unknown, Verified 03/13/25 09:13) Nausea and Vomiting olanzapine [From Zyprexa] Adverse Reaction (Unknown, Verified 03/13/25 09:13) Dizziness aripiprazole [From Abilify] Adverse Reaction (Verified 03/13/25 09:13) axphagia Bee Stings Allergy (Severe, Uncoded 03/13/25 09:13) Anaphylaxis HPI HPI asthma: Details: Liliana is a pleasant 44 year old female, former smoker with 12 pack year history, quit 5 years ago, intermittently smoking marijuana wih underlying asthma and h/o acute respiratory failure with hypoxia secondary to COVID-19. At the last visit she reported suboptimal control on Wixela 500 mcg, requiring albuterol MDI frequently. She was switched to Trelegy 200 mcg and reports significant improvements and respiratory symptoms. She currently denies any respiratory symptoms and has not required albuterol MDI. She denies any visits to urgent care hospitalizations related to respiratory distress at the last visit. [facility] Social History Patient Tobacco Use Status: Former Tobacco user Tobacco use type: Cigarette Cigarette Packs Per Day: 0.5 Years Smoked: 25 Review of Systems Const Denies chills, Denies excessive sweating, Denies fever(s), Denies headache(s) and Denies night sweats Eyes Denies dry eyes, Denies irritation and Denies itchy eyes ENT Reports Normal hearing present, Denies headache(s), Denies nasal congestion, Denies nasal discharge, Denies post nasal drip and Denies sore throat Card Denies chest pain, Denies chest pain at rest, Denies chest pain with activity, Denies claudication, Denies leg edema, Denies dyspnea, Denies dyspnea on exertion, Denies orthopnea and Denies paroxysmal nocturnal dyspnea Resp Denies chest congestion, Denies cough, Denies excessive phlegm production, Denies pain on inspiration, Denies pain with cough, Denies dyspnea, Denies dyspnea on exertion, Denies stridor and Denies wheezing Musc Denies myalgias Neuro Reports Normal hearing present and Denies headache(s) Endo Denies excessive sweating Bridger/Lymph Denies lymphadenopathy Aller/Immun Denies itchy eyes, Denies seasonal rhinorrhea and Denies wheezing Physical Exam Vital Signs: Last Vital Signs Pulse 78 03/13/25 09:11 BP 108/76 03/13/25 09:11 Pulse Ox 98 03/13/25 09:11 Oxygen Delivery Method Room Air 03/13/25 09:11 BMI result Body Mass Index 36.6 Const General: cooperative, healthy appearing, comfortable, no acute distress, well developed and alert Nutritional Appearance: obese Orientation/consciousness: patient oriented x3 Limitations: no limitations HEENT Head: Yes normal to inspection, Yes normocephalic and Yes atraumatic Ears: hearing grossly normal bilaterally and external ears normal Eyes General: appearance normal, both eyes and all related structures Eyelids: Yes eyelids normal Sclerae: sclerae normal EOM: EOMs intact bilaterally Neck Neck: Yes normal visual inspection and Yes no lymphadenopathy Lymphatic: no lymphadenopathy noted Chest Chest palpation & inspection: normal inspection of the chest Resp Effort & Inspection: normal respiratory effort, able to speak in complete sentences, no audible wheezes, no cough, no stridor, not tachypneic, no tripod positioning and no use of accessory muscles Auscultation: clear to auscultation bilaterally Cardio Jugular venous distension: no JVD Rate: regular rate Rhythm: regular rhythm Skin Other: warm, dry General skin exam: no rashes or lesions noted Neuro General: patient oriented x3 Cranial nerves: Yes Normal hearing present Cognition (Neuro): normal cognition Gait exam (Neuro): Normal gait present Extrem General: Yes normal to inspection, Yes capillary refill normal, Yes no clubbing, cyanosis or edema and Yes no pedal edema Psych Appearance: grossly normal and well kempt Speech and movement: Normal speech and movement present and Clear speech present Affect: normal affect Attitude: cooperative Thought process: Normal thought process present Thought content: Normal thought content present Insight: Good insight present (Psych) Judgement: Good judgement present (Psych) Assessment & Plan Assessment & Plan (1) Asthma: Code(s): J45.909 - Unspecified asthma, uncomplicated Category: Medical (2) Environmental allergies: Code(s): Z91.09 - Other allergy status, other than to drugs and biological substances Category: Medical (3) Former smoker: Code(s): Z87.891 - Personal history of nicotine dependence Category: Social Hx Plan At this time able reports excellent control of respiratory symptoms using Trelegy, advised to continue. She is aware to call if symptoms become less controlled. Prior IgG elevated at 1040 with positive RAST will consider Xolair in the future if develops suboptimal control on current regimen. All questions were answered and patient is in agreement of plan. Will follow up in 6 months or sooner if needed. Medications: Refilled xumkollgufq-tgqwyviby-xqivywuo 200-62.5-25 mcg (Trelegy Ellipta) 1 inh inhalation DAILY 60 ea 6RF Coding Level of Care Code Est Pt Level 4 (80684) Diagnoses Asthma J45.909 Environmental allergies Z91.09 Former smoker Z87.894
--- OUTSIDE RECORDS SUMMARY | 2025-03-13 10:20 | XMS_ITS | Clinical Summary ---
Author Organization [facility] Address [address] [place] [address] Care Team Providers Care Oven Worker Name Role Phone Salima Finney MD Primary Care Provider [phone] Surgical History Surgery Date Site/Laterality Comments LAPAROSCOPIC [...] Cervical Cancer Screening: P ap Smear 2001 COVID-19 Vaccine (2023-2 5 season) 2024 Influenza Vaccine (Season Ended) [...] age to complete this topic Care Teams Oven Worker Relationship Specialty Start Date End Date Salima Finney MD [address] [place] [address] [place] PCP - General Internal Medicine 04/24/15
== END 2025-03-13 09:44 | disposition home or self-care (01) ==
LOC: HO.HPSW 09:07
PROVIDERS: PCP Internal Medicine; Visit Provider Nurse Practitioner Family
DX: J45.909 Unspecified asthma, uncomplicated (principal); Z91.09 Other allergy status, other than to drugs and biological substances; Z87.891 Personal history of nicotine dependence
CPT/HCPCS: 99214

== ENCOUNTER → 2025-03-13 09:06 | Outpatient (BNVA) | payer BC, SELFPAY | PROVIDERS: PCP Internal Medicine; Visit Provider Nurse Practitioner Family ==